=== PATIENT | female | born 2005 | race African-American/Black ===

== ENCOUNTER 2025-03-04 00:18 | Inpatient (IN) | payer OTHER ==
[2025-03-04 00:41] VITALS: BMI 39.4
[2025-03-04 01:27] LABS: Protein, Urine Random Quant 15.0 mg/dL (1-14)
[2025-03-04 01:34] LABS: #Basophils Less than 0.03 10x3/uL (0.0-0.2); #Eosinophils 0.04 10x3/uL (0.0-0.5); #Monocytes 0.66 10x3/uL (0.0-1.1); #Neutrophils 2.38 10x3/uL (1.5-8.4); %Basophils 0.4 % (0.0-2.0); %Eosinophils 0.9 % (0.0-6.0); %Lymphocytes 31.5 % (18.0-47.0); %Monocytes 14.5 % (0.0-10.0); %Neutrophils 52.5 % (40.0-75.0); Hematocrit 29.3 % (34.9-44.5); Hemoglobin 9.9 g/dL (12.0-15.5); Mean Corpuscular Hemoglobin 30.1 pg (27.0-33.0); Mean Corpuscular Volume 89.1 fL (81.6-98.3); Platelet Count 308 10x3/uL (150-450); Red Blood Cell (RBC) Count 3.29 10x6/uL (3.90-5.03); White Blood Cell (WBC) Count 4.54 10x3/uL (3.5-10.5)
[2025-03-04 01:49] LABS: ALT (SGPT) 16 U/L (Less than 34); AST (SGOT) 27 U/L (11-34); Albumin 2.6 g/dL (3.1-4.5); Alkaline Phosphatase 156 U/L (40-110); Anion Gap 12 mmol/L (10-20); BUN (Urea Nitrogen) 5 mg/dL (7.0-18.7); Bilirubin, Total 0.2 mg/dL (0.3-1.2); Calc. Creatinine Clearance 231 mL/min (70-130); Calcium 9.0 mg/dL (7.8-10.44); Carbon Dioxide 20 mmol/L (22-29); Chloride 107 mmol/L (98-107); Globulin 4.1 g/dL (2.4-3.5); Glucose 82 mg/dL (70-105); Potassium 4.1 mmol/L (3.5-5.1); Sodium 135 mmol/L (136-145)
[2025-03-04 02:27] LABS: Influenza A by NAA Not Detected (NotDetected); Influenza B by NAA Not Detected (NotDetected); SARS-CoV-2 NAA Rapid Test Not Detected (NotDetected)
[2025-03-04] MEDS ORDERED: Bupivacaine 0.25% HCL 30 ML VIAL ONE (08:00)
[2025-03-04] MEDS ORDERED: Lidocaine 1% (PF) 30 ML VIAL SC PRN (11:25)
[2025-03-04] MEDS ORDERED: hydrALAZINE 20 MG/ML VIAL SLOW IVP PRN ×3 (11:25)
[2025-03-04] MEDS ORDERED: Ibuprofen 800 MG TAB PO PRN (11:25)
[2025-03-04] MEDS ORDERED: Carboprost 250 MCG/ML AMP IM PRN (11:25)
[2025-03-04] MEDS ORDERED: Tranexamic Acid 1,000 MG/10 ML VIAL IVP PRN (11:25)
[2025-03-04] MEDS ORDERED: Methylergonovine 0.2 MG/ML VIAL IM PRN (11:25)
[2025-03-04] MEDS ORDERED: Diphenoxylate HCl/Atropine Tablet PO PRN (11:25)
[2025-03-04] MEDS ORDERED: Acetaminophen 500 MG TAB PO PRN (11:25)
[2025-03-04] MEDS ORDERED: Calcium Gluc 4.6 MEQ/10 ML (100 MG/ML) SLOW IVP PRN (11:25)
[2025-03-04] MEDS ORDERED: HYDROcodone/Acetaminophen 5/325 mg Tablet PO PRN (11:25)
[2025-03-04] MEDS ORDERED: Oxytocin 30 units/NS 500 ML 500 ML IV SCH ×2 (11:30)
[2025-03-04 13:38] LABS: Hematocrit 31.0 % (34.9-44.5); Hemoglobin 10.1 g/dL (12.0-15.5); Mean Corpuscular Hemoglobin 29.4 pg (27.0-33.0); Mean Corpuscular Volume 90.1 fL (81.6-98.3); Platelet Count 283 10x3/uL (150-450); Red Blood Cell (RBC) Count 3.44 10x6/uL (3.90-5.03); White Blood Cell (WBC) Count 5.03 10x3/uL (3.5-10.5)
[2025-03-04 14:11] LABS: Syphilis Antibody Index 0.04 S/CO (<1.00 Non-Reactive)
[2025-03-04 14:13] LABS: Hep B Surf Ag - L&D Non-Reactive S/CO (NonReactive)
[2025-03-05] MEDS: Ondansetron PF 4 MG/2 ML Vial IVP PRN (02:23)
[2025-03-05] MEDS ORDERED: Acetaminophen 325 MG TAB PO PRN (03:08)
[2025-03-05] MEDS ORDERED: Ondansetron PF 4 MG/2 ML Vial IVP PRN ×2 (03:08→12:07)
[2025-03-05] MEDS ORDERED: Communication Order-Pharmacy FS SCH (03:15)
[2025-03-05] MEDS: fentaNYL 2 mcg/Ropivacaine 0.2% Epidural 100 ML CADD EPIDURAL SCH (03:24)
[2025-03-05] MEDS: diphenhydrAMINE 50 MG/ML VIAL IVP PRN (04:43)
[2025-03-05] MEDS ORDERED: diphenhydrAMINE 25 MG CAP PO PRN (12:07)
[2025-03-05] MEDS ORDERED: Lanolin Ointment 7 GM TUBE TOP PRN (12:07)
[2025-03-05] MEDS ORDERED: Milk Of Magnesia 30 ML UDCUP PO PRN (12:07)
[2025-03-05] MEDS ORDERED: Benzocaine-Menthol 82.5 ML CAN TOP PRN (12:07)
[2025-03-05] MEDS ORDERED: Bisacodyl 10 MG SUPP PR PRN (12:07)
[2025-03-05] MEDS ORDERED: Boostrix 0.5 ML (Tdap) VIAL (>/=7 yrs of age) IM ONE (12:07)
[2025-03-05] MEDS ORDERED: hydrALAZINE 20 MG/ML VIAL SLOW IVP PRN (12:07)
[2025-03-05] MEDS: fentaNYL/Ropivacaine Epidural 100 ML ONE (12:15)
[2025-03-05] MEDS: HYDROcodone/Acetaminophen 5/325 mg Tablet PO PRN (12:38)
[2025-03-05] MEDS: Ibuprofen 800 MG TAB PO SCH (14:27)
[2025-03-05] MEDS: Ferrous Sulfate 325 MG TAB PO SCH (18:41)
[2025-03-06] MEDS: cloNIDine 0.1 MG TAB PO PRN (06:06)
[2025-03-06] MEDS: NIFEdipine XL 30 MG ER.TAB PO SCH (09:22)
[2025-03-07 08:12] VITALS: BP 124/77; TEMP 97.9
[2025-03-07] MEDS: NIFEdipine XL 30 MG ER.TAB PO SCH (08:50)
== END 2025-03-07 12:20 | disposition home or self-care (01) | DRG 807 ==
LOC: CSHLD/OP 00:18 → CSHLD 12:22 → CSHPP 03-05 11:45
PROVIDERS: ADMIT Family Medicine; ATTEND Family Medicine
PROC: 3E0P7VZ Introduction of Hormone into Female Reproductive, Via Natural or Artificial Opening (ICD-10-PCS; principal; 2025-03-04)
PROC: 10E0XZZ Delivery of Products of Conception, External Approach (ICD-10-PCS; 2025-03-04)
PROC: 0UQMXZZ Repair Vulva, External Approach (ICD-10-PCS; 2025-03-04)
PROC: 0UQMXZZ Repair Vulva, External Approach (ICD-10-PCS; 2025-03-04)
DX: O13.4 Gestational [pregnancy-induced] hypertension without significant proteinuria, complicating childbirth (principal); Z37.0 Single live birth; Z3A.38 38 weeks gestation of pregnancy; O99.214 Obesity complicating childbirth; Z79.84 Long term (current) use of oral hypoglycemic drugs; O70.0 First degree perineal laceration during delivery; O71.82 Other specified trauma to perineum and vulva
CPT/HCPCS: 36415; 51702; 80053; 82570; 84156; 85025; 86780; 86850; 86900; 86901; 87340; 87636; 99285; J0595; J0665; J1200